=== PATIENT | female | born 1945 | race Caucasian/White ===

== ENCOUNTER → 2019-06-28 09:43 | Outpatient (CLI) | payer MEDICARE, SELFPAY ==
--- NOTE | ~2019-06-28 | MM_ITS ---
EXAMINATION: MM screening [facility] BI w alice HISTORY: Screening mammogram TECHNIQUE: Craniocaudal and mediolateral oblique 3-D tomosynthesis images were obtained and synthetic 2-D images were generated. CAD analysis was submitted and interpreted. COMPARISON: Comparison to multiple prior studies sequentially, with oldest reviewed study dated 01/2016. BREAST PARENCHYMAL COMPOSITION: There are scattered areas of fibroglandular density. FINDINGS: There is no evidence of suspicious mass, calcification, or architectural distortion to sugg est malignancy in either breast. There has been no suspicious interval change. IMPRESSION: 1. No mammographic evidence of malignancy. 2. Recommend routine screening mammography in one year. BI-RADS Category 1: Negative Reviewed, dictated and finalized at location A. MAINTENANCE WORKER
== END ==
PROVIDERS: Visit Provider Nurse Practitioner
DX: Z12.31 Encounter for screening mammogram for malignant neoplasm of breast (principal)
CPT/HCPCS: 77063; 77067

== ENCOUNTER 2020-07-07 10:46 | Outpatient (CLI) | payer MEDICARE, SELFPAY | END 2020-07-07 10:47 | disposition home or self-care (01) | LOC: ANHCOVIDVC 10:47 | PROVIDERS: PCP Internal Medicine | DX: Z23 Encounter for immunization (principal) | CPT/HCPCS: 0001A; 91300 ==

== ENCOUNTER 2020-07-28 10:46 | Outpatient (CLI) | payer MEDICARE, SELFPAY | END 2020-07-28 10:47 | disposition home or self-care (01) | LOC: ANHCOVIDVC 10:46 | PROVIDERS: PCP Internal Medicine | DX: Z23 Encounter for immunization (principal) | CPT/HCPCS: 0002A; 91300 ==

== ENCOUNTER → 2020-09-09 10:05 | Outpatient (CLI) | payer MEDICARE, SELFPAY ==
--- NOTE | ~2020-09-09 | MM_ITS ---
EXAMINATION: MM screening [facility] BI w alice HISTORY: Screening TECHNIQUE: Craniocaudal and mediolateral oblique 3-D tomosynthesis images were obtained and synthetic 2-D images were generated. CAD analysis was submitted and interpreted. COMPARISON: Comparison to multiple prior studies sequentially, with oldest reviewed study dated 01/2016. BREAST PARENCHYMAL COMPOSITION: There are scattered areas of fibroglandular density. FINDINGS: There is no evidence of suspicious mass, calcification, or architectural distortion to sugg est malignancy in either breast. There has been no suspicious interval change. IMPRESSION: 1. No mammographic evidence of malignancy. 2. Recommend routine screening mammography in one year. BI-RADS Category 1: Negative Reviewed, dictated and finalized at location A.
== END ==
PROVIDERS: PCP Internal Medicine; Visit Provider Clinical Nurse Specialist
DX: Z12.31 Encounter for screening mammogram for malignant neoplasm of breast (principal)
CPT/HCPCS: 77063; 77067

== ENCOUNTER → 2021-07-22 12:20 | Outpatient (CLI) | payer MEDICARE, SELFPAY ==
--- NOTE | ~2021-07-22 | DEXA_ITS ---
Bone Density Report Name: KYLAH GARCIA Age: 75 Sex: Female Ethnicity: White Date of : 1945 Indication: osteopenia; prior fracture;postmenopausal Referring Provider: Tisha Grey Study: Bone densitometry was performed. Exam Date: July 22, 2021 Accession number: [id number] Bone Density: Region BMD T-score Z-score Classification AP Spine (L1-L4) 0.815 -2.1 0.2 Osteopenia Femoral Neck (Left) 0.622 -2.0 0.0 Osteopenia Total Hip (Left) 0.714 -1.9 -0.2 Osteopenia Femoral Neck (Right) 0.583 -2.4 -0.4 Osteopenia Total Hip (Right) 0.705 -1.9 -0.2 Osteopenia Total Hip Mean 0.710 -1.9 -0.2 Osteopenia World Health Organization criteria for BMD impression classify patients as: Normal (T-score at or above -1.0), Osteopenia (T-score between -1.0 and -2.5), or Osteoporosis (T-score at or below -2.5). 10-year Fracture Risk(1): Major Osteoporotic Fracture 23% Hip Fracture 6.0% Reported Risk Factors: [place] (), Neck BMD=0.583, BMI=24.8, previous fracture (1) FRAX(R) Version 3.08. Fracture probability calculated for an untreated patient. Fracture probability may be lower if the patient has received treatment. Previous Exams: Region Exam Age BMD T-score BMD Change BMD Change Date g/cm2 vs Baseline vs Previous AP Spine(L1-L4) 07/22/2021 75 0.815 -2.1 0.049* 0.009 05/09/2019 73 0.807 -2.2 0.040* 0.008 04/19/2017 71 0.799 -2.3 0.032* -0.012 04/09/2015 69 0.811 -2.1 0.044* 0.019 08/16/2013 67 0.792 -2.3 0.025* -0.023* 05/20/2011 65 0.815 -2.1 0.049* 0.037* 04/07/2009 63 0.778 -2.4 0.011 0.011 03/15/2007 61 0.767 -2.5 Total Hip(Left) 07/22/2021 75 0.714 -1.9 -0.038* -0.028* 05/09/2019 73 0.741 -1.6 -0.010 -0.015 04/19/2017 71 0.756 -1.5 0.005 0.016 04/09/2015 69 0.741 -1.7 -0.011 -0.009 08/16/2013 67 0.749 -1.6 -0.002 0.020 05/20/2011 65 0.729 -1.7 -0.022 0.013 04/07/2009 63 0.716 -1.9 -0.035* -0.035* 03/15/2007 61 0.752 -1.6 Total Hip(Right) 07/22/2021 75 0.705 -1.9 -0.012 0.012 05/09/2019 73 0.693 -2.0 -0.025 -0.040* 04/19/2017 71 0.732 -1.7 0.015 0.014 04/09/2015 69 0.719 -1.8 0.001 -0.023 08/16/2013 67 0.742 -1.6 0.024 0.011 05/20/2011 65 0.731 -1.7 0.014 0.014
== END ==
PROVIDERS: PCP Internal Medicine; Visit Provider Nurse Practitioner
DX: Z78.0 Asymptomatic menopausal state (principal); M85.89 Other specified disorders of bone density and structure, multiple sites
CPT/HCPCS: 77080

== ENCOUNTER → 2021-09-13 10:53 | Outpatient (CLI) | payer MEDICARE, SELFPAY ==
--- NOTE | ~2021-09-13 | MM_ITS ---
EXAMINATION: MM screening [facility] BI w alice HISTORY: Screening TECHNIQUE: Craniocaudal and mediolateral oblique 3-D tomosynthesis images were obtained and synthetic 2-D images were generated. CAD analysis was submitted and interpreted. COMPARISON: Comparison to multiple prior studies sequentially, with oldest reviewed study dated 06/15/2015. BREAST PARENCHYMAL COMPOSITION: Breast composed of scattered areas of fibroglandular density FINDINGS: There is a focal asymmetry in the subareolar location of the left breast on MLO view, not v isualized on CC view. The right breast is stable without evidence for malignancy. IMPRESSION: 1. Focal left breast asymmetry on MLO view. 2. Additional mammographic views and possible breast ultrasound are recommended. BI-RADS Category 0: Incomplete: Needs additional imaging evaluation. Reviewed, dictated and finalized at location A. IMPRESSION: 1. Focal left breast asymmetry on MLO view. 2. Additional mammographic views and possible breast ultrasound are recommended . BI-RADS Category 0: Incomplete: Needs additional imaging evaluation.
== END ==
PROVIDERS: PCP Internal Medicine; Visit Provider Obstetrics & Gynecology
DX: Z12.31 Encounter for screening mammogram for malignant neoplasm of breast (principal)
CPT/HCPCS: 77063; 77067

== ENCOUNTER → 2021-09-22 08:46 | Outpatient (CLI) | payer MEDICARE, SELFPAY ==
--- NOTE | ~2021-09-22 | MM_ITS ---
EXAMINATION: MM diagnostic [facility] LT w alice HISTORY: Left breast asymmetry on screening mammogram TECHNIQUE: Additional 3-D tomosynthesis images of the left breast were performed and synthetic 2-D im ages were generated. CAD analysis was submitted and interpreted. COMPARISON: 09/13/2021, 09/09/2020, 06/28/2019, 06/25/2018 FINDINGS: There is a return to baseline fibroglandular appearance with spot compression of the left b reast in the area questioned on screening mammogram. IMPRESSION: 1. No mammographic evidence of malignancy. 2. Recommend routine screening mammography in one year. BI-RADS Category 1: Negative Reviewed, dictated and finalized at location A.
== END ==
PROVIDERS: PCP Internal Medicine; Visit Provider Obstetrics & Gynecology
DX: R92.8 Other abnormal and inconclusive findings on diagnostic imaging of breast (principal)
CPT/HCPCS: 77061; 77065; G0279

== ENCOUNTER 2022-02-20 07:55 | Outpatient (CLI) | payer MEDICARE, SELFPAY ==
[2022-02-20 19:49] LABS: Basophils Percent Auto 0.7 % (0.2-1.2); Eosinophils Absolute Auto 0.2 K/mm3 (0-0.3); Hematocrit 42.5 % (37.0-47.0); Hemoglobin 13.8 g/dL (12.0-15.0); Lymphocytes Absolute Auto 1.76 K/mm3 (0.9-3.2); Lymphocytes Percent Auto 29.6 % (18.3-44.2); Mean Corpuscular HGB Conc 32.5 g/dl (32-36); Mean Corpuscular Hemoglobin 30.5 pg (26-34); Monocytes Absolute Auto 0.9 K/mm3 (0.1-0.6); Monocytes Percent Auto 14.3 % (2.6-8.5); Neutrophils Absolute Auto 3.1 K/mm3 (1.3-6.7); Neutrophils Percent Auto 52.4 % (45.5-73.1); Platelet Count Result 241 k/mm3 (150-375); Red Blood Count 4.52 M/mm3 (4.2-5.4); Red Cell Distribution Width 12.6 % (11.5-14.5); White Blood Count 5.9 K/mm3 (4.5-10.0)
[2022-02-20 20:07] LABS: Alanine Aminotransferase 19 U/L (6-35); Albumin Level 4.1 g/dL (3.5-5.1); Alkaline Phosphatase 87 U/L (38-126); Anion Gap 10 mmol/L (8-16); Aspartate Amino Transferase 26 U/L (14-36); Bilirubin,Total 0.5 mg/dL (0.2-1.3); Blood Urea Nitrogen 16 mg/dL (7-17); Calcium 8.7 mg/dL (8.4-10.2); Carbon Dioxide 29 mmol/L (22-30); Chloride 101 mmol/L (98-107); Cholesterol 178 mg/dL (0-200); Estimated Glomerular Filt Rate > 60; Glucose 87 mg/dL (65-110); HDL Direct 56 mg/dL; Potassium 3.7 mmol/L (3.4-5.0); Sodium 140 mmol/L (137-145); Triglycerides 120 mg/dL (<150)
[2022-02-20 20:18] LABS: LDL Cholesterol Direct 77 mg/dL
[2022-02-20 20:44] LABS: Vitamin D 25 Hydroxy 45.2 ng/mL
== END 2022-02-20 07:56 | disposition home or self-care (01) ==
LOC: ANHGOSHLAB 07:57
PROVIDERS: PCP Internal Medicine; Visit Provider Nurse Practitioner
DX: E55.9 Vitamin D deficiency, unspecified (principal); Z13.29 Encounter for screening for other suspected endocrine disorder; E78.5 Hyperlipidemia, unspecified; E03.9 Hypothyroidism, unspecified
CPT/HCPCS: 36415; 80053; 80061; 82306; 84443; 85025

== ENCOUNTER → 2022-09-14 10:20 | Outpatient (CLI) | payer MEDICARE, SELFPAY ==
--- NOTE | ~2022-09-14 | MM_ITS ---
EXAMINATION: MM screening [facility] BI w alice HISTORY: Screening mammogram TECHNIQUE: Craniocaudal and mediolateral oblique 3-D tomosynthesis images were obtained and synthetic 2-D images were generated. CAD analysis was submitted and interpreted. COMPARISON: 09/22/2021, 09/13/2021, 09/09/2020, 06/28/2019 BREAST PARENCHYMAL COMPOSITION: There are scattered areas of fibroglandular density. FINDINGS: No suspicious mass, calcification, or architectural distortion are identified in either miracle ast to suggest malignancy. There has been no suspicious interval change. IMPRESSION: 1. No mammographic evidence of malignancy. 2. Recommend routine screening mammography in one year. BI-RADS Category 1: Negative Reviewed, dictated and finalized at location A.
--- NOTE | ~2022-09-14 | DEXA_ITS ---
Bone Density Report Name: KYLAH GRACIA Age: 76 Sex: Female Ethnicity: White Date of : 1945 Indication: osteopenia; monitoring treatment; prior fracture; postmenopausal Referring Provider: Tisha Grey Study: Bone densitometry was performed. Exam Date: September 14, 2022 Accession number: [id number] Bone Density: Region BMD T-score Z-score Classification AP Spine (L1-L4) 0.848 -1.8 0.6 Osteopenia Femoral Neck (Left) 0.633 -1.9 0.1 Osteopenia Total Hip (Left) 0.724 -1.8 0.0 Osteopenia Femoral Neck (Right) 0.601 -2.2 -0.2 Osteopenia Total Hip (Right) 0.708 -1.9 -0.2 Osteopenia Total Hip Mean 0.716 -1.9 -0.1 Osteopenia World Health Organization criteria for BMD impression classify patients as: Normal (T-score at or above -1.0), Osteopenia (T-score between -1.0 and -2.5), or Osteoporosis (T-score at or below -2.5). 10-year Fracture Risk: FRAX not reported because: Treated for osteoporosis Previous Exams: Region Exam Age BMD T-score BMD Change BMD Change Date g/cm2 vs Baseline vs Previous AP Spine(L1-L4) 09/14/2022 76 0.848 -1.8 0.081* 0.033* 07/22/2021 75 0.815 -2.1 0.049* 0.009 05/09/2019 73 0.807 -2.2 0.040* 0.008 04/19/2017 71 0.799 -2.3 0.032* -0.012 04/09/2015 69 0.811 -2.1 0.044* 0.019 08/16/2013 67 0.792 -2.3 0.025* -0.023* 05/20/2011 65 0.815 -2.1 0.049* 0.037* 04/07/2009 63 0.778 -2.4 0.011 0.011 03/15/2007 61 0.767 -2.5 Total Hip(Left) 09/14/2022 76 0.724 -1.8 -0.027 0.011 07/22/2021 75 0.714 -1.9 -0.038* -0.028* 05/09/2019 73 0.741 -1.6 -0.010 -0.015 04/19/2017 71 0.756 -1.5 0.005 0.016 04/09/2015 69 0.741 -1.7 -0.011 -0.009 08/16/2013 67 0.749 -1.6 -0.002 0.020 05/20/2011 65 0.729 -1.7 -0.022 0.013 04/07/2009 63 0.716 -1.9 -0.035* -0.035* 03/15/2007 61 0.752 -1.6 Total Hip(Right) 09/14/2022 76 0.708 -1.9 -0.009 0.003 07/22/2021 75 0.705 -1.9 -0.012 0.012 05/09/2019 73 0.693 -2.0 -0.025 -0.040* 04/19/2017 71 0.732 -1.7 0.015 0.014 04/09/2015 69 0.719 -1.8 0.001 -0.023 08/16/2013 67 0.742 -1.6 0.024 0.011 05/20/2011 65 0.731 -1.7 0.014 0.014 04/07/2009 63 0.716 -1.8 -0.001 -0.001
== END ==
PROVIDERS: PCP Nurse Practitioner; Visit Provider Nurse Practitioner
DX: Z12.31 Encounter for screening mammogram for malignant neoplasm of breast (principal); M85.9 Disorder of bone density and structure, unspecified; Z78.0 Asymptomatic menopausal state
CPT/HCPCS: 77063; 77067; 77080

== ENCOUNTER 2023-02-21 08:17 | Outpatient (CLI) | payer MEDICARE, SELFPAY ==
[2023-02-21 18:53] LABS: Basophils Percent Auto 0.5 % (0.2-1.2); Eosinophils Absolute Auto 0.1 K/mm3 (0-0.3); Eosinophils Percent Auto 1.5 % (0-4.4); Hematocrit 45.7 % (37.0-47.0); Hemoglobin 14.3 g/dL (12.0-15.0); Immature Granulocyte Absolute 0.01 K/mm3 (0.00-0.031); Immature Granulocyte Percent A 0.2 % (0-0.5); Lymphocytes Absolute Auto 1.75 K/mm3 (0.9-3.2); Mean Corpuscular HGB Conc 31.3 g/dl (32-36); Mean Corpuscular Hemoglobin 30.6 pg (26-34); Mean Corpuscular Volume 97.6 fl (80-100); Mean Platelet Volume 11.6 fl (7.4-10.4); Monocytes Absolute Auto 0.7 K/mm3 (0.1-0.6); Monocytes Percent Auto 11.6 % (2.6-8.5); Neutrophils Absolute Auto 3.5 K/mm3 (1.3-6.7); Neutrophils Percent Auto 57.2 % (45.5-73.1); Platelet Count Result 238 k/mm3 (150-375); Red Blood Count 4.68 M/mm3 (4.2-5.4)
[2023-02-21 19:21] LABS: Vitamin D 25 Hydroxy 43.9 ng/mL
[2023-02-21 19:52] LABS: Alanine Aminotransferase 18 U/L (6-35); Albumin Level 4.2 g/dL (3.5-5.1); Alkaline Phosphatase 75 U/L (38-126); Anion Gap 2 mmol/L (8-16); Aspartate Amino Transferase 27 U/L (14-36); Bilirubin,Total 0.6 mg/dL (0.2-1.3); Blood Urea Nitrogen 17 mg/dL (7-17); Calcium 8.8 mg/dL (8.4-10.2); Carbon Dioxide 33 mmol/L (22-30); Chloride 104 mmol/L (98-107); Cholesterol 200 mg/dL (0-200); Estimated Glomerular Filt Rate > 60; Glucose 80 mg/dL (65-110); HDL Direct 67 mg/dL; Potassium 4.2 mmol/L (3.4-5.0); Sodium 139 mmol/L (137-145); Triglycerides 122 mg/dL (<150)
[2023-02-21 20:02] LABS: LDL Cholesterol Direct 84 mg/dL
== END 2023-02-21 08:18 | disposition home or self-care (01) ==
PROVIDERS: PCP Nurse Practitioner; Visit Provider Nurse Practitioner
DX: E78.5 Hyperlipidemia, unspecified (principal); E55.9 Vitamin D deficiency, unspecified; Z13.29 Encounter for screening for other suspected endocrine disorder
CPT/HCPCS: 36415; 80053; 80061; 82306; 85025

== ENCOUNTER 2023-07-11 15:33 | Outpatient (CLI) | payer MEDICARE, SELFPAY ==
[2023-07-11 16:26] LABS: Alanine Aminotransferase 18 U/L (6-35); Aspartate Amino Transferase 43 U/L (14-36)
== END 2023-07-11 15:34 | disposition home or self-care (01) ==
LOC: ANHLAB 15:35
PROVIDERS: PCP Nurse Practitioner; Visit Provider Podiatrist Foot & Ankle Surgery
DX: B35.1 Tinea unguium (principal)
CPT/HCPCS: 36415; 84450; 84460

== ENCOUNTER 2023-09-10 13:25 | Emergency (ER) | payer MEDICARE, SELFPAY ==
--- NOTE | ~2023-09-10 | XR_ITS ---
AP and lateral views of the right hip Clinical history: Pain Findings: No acute fracture or dislocation is seen. Osseous alignment is anatomic. Right hip joint sp teresa is preserved. Soft tissues are unremarkable. Impression: No significant abnormality is seen. Reviewed, dictated and finalized at location . Impression: No significant abnormality is seen.
--- NOTE | ~2023-09-10 | XR_ITS ---
Right Shoulder Technique: AP and scapular Y views were obtained. Clinical History: Pain Findings: No fracture or dislocation is seen. Osseous alignment is anatomic. The glenohumeral and acr omioclavicular joint spaces are preserved. Soft tissues are unremarkable. Impression: Unremarkable right shoulder radiographs. Reviewed, dictated and finalized at [facility]. Impression: Unremarkable right shoulder radiographs.
--- NOTE | 2023-09-10 13:27 | ED.GENADULT ---
HPI - General Adult General Chief complaint: Fall Stated complaint: Right Shoulder/Hip Pain Time Seen by Provider: 09/10/23 13:34 Source: patient, RN notes reviewed and old records reviewed Mode of arrival: ambulatory Limitations: no limitations History of Present Illness HPI narrative: 77-year-old female presents to the [facility] with right shoulder and right hip pain. Patient states 2 days ago on Sunday she tripped and fell on her right side. No treatment prior to arrival Has full range of motion of the shoulder. Walks with a normal gait. Related Data Home Medications Medication Instructions Recorded Confirmed cholecalciferol (vitamin D3) 50 50 mcg PO DAILY 02/26/20 09/10/23 mcg (2,000 unit) capsule vit C 250 mg-vit E 90 mg-zinc 40 2 tablet PO DAILY 03/01/22 09/10/23 mg-copper 1 [id number] capsule (PreserVision AREDS-2) terbinafine HCl 250 mg tablet 250 mg PO DAILY 07/20/23 09/10/23 Allergies Allergy/AdvReac Type Severity Reaction Status Date / Time doxycycline Allergy Unknown Hives Verified 07/20/23 09:59 Review of Systems Review of Systems: All systems reviewed & are unremarkable except as noted in HPI and below Constitutional: Constitutional: Reports no additional constitutional complaints Eyes: Eyes: Reports no additional eye complaints ENT: Reports system reviewed and no additional complaints, except as documented Cardiovascular: Cardiovascular: Reports no additional cardiovascular complaints, Denies chest pain and Denies dyspnea Respiratory: Respiratory: Reports no additional respiratory complaints, Denies chest congestion, Denies cough and Denies dyspnea Gastrointestinal: Gastrointestinal: Reports no additional gastrointestinal complaints, Denies abdominal pain, Denies nausea and Denies vomiting Musculoskeletal: Musculoskeletal: Reports as per HPI and Reports arthralgias (Generalized right shoulder, generalized right hip) Integumentary/Breasts: Skin/Breast: Reports system reviewed and no additional complaints, except as docu Neurologic: Reports system reviewed and no additional complaints, except as documented Psychiatric: Psychiatric: Reports no additional psychiatric complaints Allergic/Immunologic: Allergic/Immunologic: Reports no additional allergic/immunologic complaints [facility] Past Medical History Medical History Abnormality of left breast on screening mammogram Encounter for Papanicolaou smear for cervical cancer screening History of fracture History of macular degeneration Hypercalcemia Hyperlipidemia Hypothyroidism Measles Mumps Osteopenia Rosacea Screening mammogram, encounter for Vitamin D deficiency Surgical History Surgical History History of appendectomy 01/02/04 History of breast biopsy 01/05/02 cancer--no treatment needed History of tubal ligation Hx of cholecystectomy 1983 Family History Family History Father Family history of coronary artery disease COPD (chronic obstructive pulmonary disease) Mother Cerebral hemorrhage Family history of osteoporosis Cerebrovascular accident Sibling Family history of osteoporosis sister brother Social History Social History Social History: Caffeine-none Smoking status: Never smoker Second hand tobacco smoke exposure: Yes Smoking end date: 05/07/92 Alcohol intake: never Alcohol use details: rarely 1-2 a year Substance use: never Substance use type: does not use Do You Feel Safe in your Home?: Yes Lack of Transportation: No Lack of Food: Never True Current Housing: I Have Housing Concerned About Future Housing: No Difficulty Paying Gas/Electric Bills: No Difficulty Paying for Meds: No Currently Unemployed: No Education: High School Diploma
[2023-09-10 13:34] VITALS: BP 144/66; PULSE 71; RESP 16; TEMP 36.4; O2SAT 100
== END 2023-09-10 14:16 | disposition home or self-care (01) ==
PROVIDERS: Emergency Provider Nurse Practitioner; PCP Nurse Practitioner
DX: M25.551 Pain in right hip (principal); M25.511 Pain in right shoulder; W19.XXXA Unspecified fall, initial encounter; E78.5 Hyperlipidemia, unspecified; E03.9 Hypothyroidism, unspecified; E55.9 Vitamin D deficiency, unspecified
CPT/HCPCS: 73030; 73502; 99214; G0463

== ENCOUNTER 2023-10-10 14:13 | Outpatient (CLI) | payer MEDICARE, SELFPAY ==
[2023-10-10 15:28] LABS: Alanine Aminotransferase 19 U/L (6-35); Aspartate Amino Transferase 34 U/L (14-36)
== END 2023-10-10 14:14 | disposition home or self-care (01) ==
LOC: ANHLAB 14:14
PROVIDERS: PCP Nurse Practitioner; Visit Provider Nurse Practitioner
DX: B35.1 Tinea unguium (principal)
CPT/HCPCS: 36415; 84450; 84460

== ENCOUNTER 2023-10-23 13:31 | Outpatient (CLI) | payer MEDICARE, SELFPAY ==
--- NOTE | ~2023-10-23 | MM_ITS ---
EXAMINATION: MM screening [facility] BI w alice HISTORY: Screening TECHNIQUE: Craniocaudal and mediolateral oblique 3-D tomosynthesis images were obtained and synthetic 2-D images were generated. CAD analysis was submitted and interpreted. COMPARISON: Comparison to multiple prior studies sequentially, with oldest reviewed study dated 06/25. BREAST PARENCHYMAL COMPOSITION: Not dense: There are scattered areas of fibroglandular density. FINDINGS: There is no evidence of suspicious mass, calcification, or architectural distortion to sugg est malignancy in either breast. There has been no suspicious interval change. IMPRESSION: 1. No mammographic evidence of malignancy. 2. Recommend routine screening mammography in one year. BI-RADS Category 1: Negative Reviewed, dictated and finalized at location B.
== END 2023-10-23 13:32 ==
LOC: MICIMG 13:31
PROVIDERS: PCP Nurse Practitioner; Visit Provider Obstetrics & Gynecology
DX: Z12.31 Encounter for screening mammogram for malignant neoplasm of breast (principal)
CPT/HCPCS: 77063; 77067

== ENCOUNTER 2023-11-13 14:00 | Outpatient (RCR) | payer MEDICARE, SELFPAY ==
[2023-10-12 11:20] VITALS: BP_SYST 140
--- NOTE | 2023-10-12 12:20 | OPREHPOC ---
Outpatient Therapy Plan of Care This is a Multidisciplinary Plan of Care that may contain components documented by all disciplines (PT, OT, and ST.) PT Problem 1 PT Problem #1 Knowledge Deficit PT Goal 1 Goal [place] with HEP Target Visit 4 PT Problem 2 PT Problem #2 Impaired Range of Motion PT Goal 1 Goal Demonstrate 165 degrees of shoulder flexion ROM for improved functional reach Target Visit 8 PT Problem 3 PT Problem #3 Impaired Strength PT Goal 1 Goal Improve R shoulder external rotation strength to 4 +/5 to improve shoulder stability Target Visit 8 PT Goal 2 Goal Improve R shoulder flexion to 4+/5 to improve lifting ability for ADL performance Target Visit 8 PT Goal 1 Goal Demonstrate ability to perform 5# lift overhead pain free for reaching to cabinet ability Target Visit 8
--- NOTE | 2023-10-12 12:21 | PTOPEVAL1 ---
Assessment and note entered by Tulio Giang, PT Evaluation Information Assessment Status Evaluation Diagnosis Complete tear of right rotator cuff, Right shoulder pain Onset 09/08/23 Subjective Information Reports that she tripped an fell in early September of this year. Prior to that she would only have cramping and soreness in shoulder. She feels she is a bit weaker and unsure how much damage came from the fall. She gets some pain with pressure on the shoulder. Denies radicular issues. Reported Pain Level Pain Score 0: Self Report Assessment PT Clinical Summary Patient presents with weakness in upper rotator cuff group. Minor difference between active and passive shoulder motion at this time. Patient appears to be on the healing end of injury. Implemented isometric stretching and active assisted motion with no increased pain. Will continue with postural strengthening and resistance strengthening moving forward to maximize function. Plan of Care Interventions Electrical Stimulation,Hot Pack/Cold Pack,Manual Therapy,Neuro Re-education,Therapeutic Activities, Therapeutic Exercise PT Services Indicated Yes Treatment Frequency and 2x/week for 8 visits Duration These treatments will address the objective and functional deficits as defined above. The patient will be advanced safely and appropriately in order for the patient to progress towards his/her prior level of function. Additional exercises will be introduced and as well as a comprehensive home exercise program upon discharge, if needed, ?to ensure carryover of functional gains achieved in the clinic. This treatment plan has been reviewed and agreement upon by the patient.
--- NOTE | 2023-11-13 14:46 | PTOPDC ---
Assessment and note entered by Tulio Giang, PT Evaluation Information Assessment Status Discharge Diagnosis Complete tear of right rotator cuff, Right shoulder pain Onset 09/08/23 Subjective Information Reports that she is still having some pain with reaching behind her back and dressing in her jacket. Feels she is better overall. Feels she is sleeping well but continues to have some difficulty with pressure on her shoulder She has had off and on popping of the joint which occasionally hurts. She has been a little more achy this week but is unsure if se has done anything to prompt this. She is happy with where she is in therapy at this point and is requesting discharge to [facility]. Pain is isolated to a single motion. Reported Pain Level Pain Score 0: Self Report Assessment PT Clinical Summary Patient Has made excellent progress at this point with therapy resulting in improved shoulder active motion and improved capsular strength. At this time she is only functionally limited in donning a jacket motion combination of abduction and external rotation. No pain with all other activity . She is compliant with [facility] and plans to continue at home post discharge. I informed her that I would be available should she have any concerns moving forward. Plan of Care PT Services Indicated D/C to [facility]
== END 2023-11-13 14:58 | disposition home or self-care (01) ==
LOC: ANHGOSHPT 14:00
PROVIDERS: PCP Nurse Practitioner; Visit Provider Orthopaedic Surgery
DX: M75.121 Complete rotator cuff tear or rupture of right shoulder, not specified as traumatic (principal)
CPT/HCPCS: 97110; 97112; 97140; 97161; 97530

== ENCOUNTER 2024-01-01 08:14 | Emergency (ER) | payer MEDICARE, SELFPAY ==
--- NOTE | ~2024-01-01 | XR_ITS ---
EXAMINATION: XR hand LT min 3V DATE: 01/01/2024 08:38 INDICATION: Pain and bruising at the left third-fifth metacarpals. TECHNIQUE: Posteroanterior, oblique and lateral views of the left hand were obtained. COMPARISON: None. FINDINGS: Diffuse osteopenia. Subtle linear lucency extending across the waist of the scaphoid consistent with nondisplaced fracture. No other fractures identified. Alignment remains essentially. Polyarticular os teoarthritis, moderate severity triscaphe and first carpometacarpal joint. Mild to moderate osteoarth ritis of the joints and mild osteoarthritis at the wrist, midcarpal and at the metacarpophalangeal nancy ints. Likely degenerative subarticular cystlike changes with dense chronic markings at the bases mult iple phalanges. Soft tissue swelling of the carpus. IMPRESSION: 1. Likely nondisplaced fracture at the scaphoid waist. Correlate for point tenderness at the radial a spect of the carpus. 2. 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 Reviewed, dictated and finalized at location A. IMPRESSION: 1. Likely nondisplaced fracture at the scaphoid waist. Correlate for point tend erness at the radial aspect of the carpus. 2. 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
[2024-01-01 08:28] VITALS: BP 139/72; PULSE 85; RESP 16; TEMP 36.5; O2SAT 98
--- NOTE | 2024-01-01 08:32 | ED.GENADULT ---
HPI - General Adult General Chief complaint: Extremity Injury, Upper Stated complaint: Injured Left Hand Time Seen by Provider: 01/01/24 08:43 Source: patient, RN notes reviewed and old records reviewed Mode of arrival: ambulatory Limitations: no limitations History of Present Illness HPI narrative: 78-year-old [facility] complaint of left hand pain status post fall yesterday. Patient states that neighbor's dog ran over to Greet her yesterday and was running around her and in between her legs, causing her to fall toward her left side. Patient reports falling onto left outstretched arm. Patient states that she did not have any pain or swelling until overnight while sleeping. Patient reports that upon awakening this morning she ecchymosis to the dorsal and palmar hand and mild swelling. Patient denies numbness, tingling, prior injury, decreased ROM of all digits. Related Data Home Medications Medication Instructions Recorded Confirmed cholecalciferol (vitamin D3) 50 50 mcg PO DAILY 02/26/20 01/01/24 mcg (2,000 unit) capsule vit C 250 mg-vit E 90 mg-zinc 40 2 tablet PO DAILY 03/01/22 01/01/24 mg-copper 1 [id number] capsule (PreserVision AREDS-2) terbinafine HCl 250 mg tablet 250 mg PO DAILY 07/20/23 01/01/24 metronidazole 0.75 % lotion 1 applic topical DIRECTED 01/01/24 01/01/24 Allergies Allergy/AdvReac Type Severity Reaction Status Date / Time doxycycline Allergy Unknown Hives Verified 11/16/23 07:54 Review of Systems Review of Systems: All systems reviewed & are unremarkable except as noted in HPI and below Constitutional: Constitutional: Reports no additional constitutional complaints Eyes: Eyes: Reports no additional eye complaints ENT: Reports system reviewed and no additional complaints, except as documented Cardiovascular: Cardiovascular: Reports no additional cardiovascular complaints, Denies chest pain and Denies dyspnea Respiratory: Respiratory: Reports no additional respiratory complaints, Denies cough and Denies dyspnea Musculoskeletal: Musculoskeletal: Reports as per HPI, Reports arthralgias, Reports joint swelling, Reports limited range of motion, Denies numbness and Denies tingling Neurologic: Reports system reviewed and no additional complaints, except as documented Psychiatric: Psychiatric: Reports no additional psychiatric complaints PMFSH Past Medical History Medical History Abnormality of left breast on screening mammogram Encounter for Papanicolaou smear for cervical cancer screening History of fracture History of macular degeneration Hypercalcemia Hyperlipidemia Hypothyroidism Measles Mumps Osteopenia Rosacea Screening mammogram, encounter for Vitamin D deficiency Surgical History Surgical History History of appendectomy 01/02/04 History of breast biopsy 01/05/02 cancer--no treatment needed History of knee surgery left History of tubal ligation Hx of cholecystectomy 1983 Family History Family History Father Family history of coronary artery disease COPD (chronic obstructive pulmonary disease) Mother Cerebral hemorrhage Family history of osteoporosis Cerebrovascular accident Sibling Family history of osteoporosis sister brother Polio Social History Social History Social History: Caffeine-none Smoking status: Former smoker Second hand tobacco smoke exposure: Yes Smoking end date: 05/07/92 Alcohol intake: current Alcohol use details: rarely 1-2 a year Substance use: never Substance use type: does not use Do You Feel Safe in your Home?: Yes Lack of Transportation: No Lack of Food: Never True Current Housing: I Have Housing Concern
== END 2024-01-01 09:30 | disposition home or self-care (01) ==
PROVIDERS: Emergency Provider Nurse Practitioner Family; PCP Nurse Practitioner
DX: S62.002A Unspecified fracture of navicular [scaphoid] bone of left wrist, initial encounter for closed fracture (principal); W01.0XXA Fall on same level from slipping, tripping and stumbling without subsequent striking against object, initial encounter; Z87.891 Personal history of nicotine dependence; E78.5 Hyperlipidemia, unspecified; E03.9 Hypothyroidism, unspecified; M85.80 Other specified disorders of bone density and structure, unspecified site; E55.9 Vitamin D deficiency, unspecified; H35.30 Unspecified macular degeneration
CPT/HCPCS: 29125; 73130; 99214; A4565; G0463

== ENCOUNTER 2024-01-14 10:14 | Outpatient (CLI) | payer MEDICARE, SELFPAY ==
--- NOTE | ~2024-01-14 | XR_ITS ---
XR wrist LT min 3V Ordering provider: Chadwick Lira MD History: . HX left scaphoid fx . Comparison: January 01, 2024 FINDINGS: BONES: Fracture is seen in the body of the scaphoid bone. JOINT SPACES: Well maintained. SOFT TISSUES: Normal. IMPRESSION: Fracture of the scaphoid unchanged from previous examination. Reviewed, dictated and finalized at location A.
== END 2024-01-14 10:15 | disposition home or self-care (01) ==
LOC: ANHIMG 10:22
PROVIDERS: PCP Nurse Practitioner; Visit Provider Plastic Surgery
DX: S62.002A Unspecified fracture of navicular [scaphoid] bone of left wrist, initial encounter for closed fracture (principal); X58.XXXA Exposure to other specified factors, initial encounter
CPT/HCPCS: 73110

== ENCOUNTER 2024-01-16 10:21 | Outpatient (CLI) | payer MEDICARE, SELFPAY ==
[2024-01-16 11:23] LABS: Alanine Aminotransferase 18 U/L (6-35); Aspartate Amino Transferase 40 U/L (14-36)
== END 2024-01-16 10:22 | disposition home or self-care (01) ==
PROVIDERS: PCP Nurse Practitioner; Visit Provider Podiatrist Foot & Ankle Surgery
DX: B35.1 Tinea unguium (principal)
CPT/HCPCS: 36415; 84450; 84460

== ENCOUNTER 2024-01-29 10:23 | Outpatient (CLI) | payer MEDICARE, SELFPAY ==
--- NOTE | ~2024-01-29 | XR_ITS ---
XR wrist LT min 3V Ordering provider: Chadwick Lira MD History: . HX FRACTURE X 4 WEEKS AGO, F/U . Comparison: January 14, 2024 FINDINGS: BONES: Healing fracture in the scaphoid bone. JOINT SPACES: Well maintained. SOFT TISSUES: Normal. IMPRESSION: Healing fracture in the scaphoid bone. Reviewed, dictated and finalized at location A.
== END 2024-01-29 10:24 | disposition home or self-care (01) ==
PROVIDERS: PCP Nurse Practitioner; Visit Provider Plastic Surgery
DX: S62.002D Unspecified fracture of navicular [scaphoid] bone of left wrist, subsequent encounter for fracture with routine healing (principal); X58.XXXD Exposure to other specified factors, subsequent encounter
CPT/HCPCS: 73110

== ENCOUNTER 2024-02-18 08:09 | Outpatient (CLI) | payer MEDICARE, SELFPAY ==
--- NOTE | ~2024-02-18 | XR_ITS ---
XR hand LT min 3V Ordering provider: Chadwick Lira MD History: . S62.002A - Unspecified fracture of navicular [scaphoid] b... . Comparison: 01/29/2024 FINDINGS: BONES: Healing fracture is seen in the scaphoid bone. Irregularity also seen in the pisiform bone. Fo llow-up advised. JOINT SPACES: Narrowing of the proximal and distal interphalangeal joints. SOFT TISSUES: Unremarkable. IMPRESSION: Healing fracture in the scaphoid bone. Irregularity in the pisiform bone which may indicate healing f racture. Reviewed, dictated and finalized at location A. IMPRESSION: Healing fracture in the scaphoid bone. Irregularity in the pisiform bone which may indicate healing fracture.
== END 2024-02-18 08:10 | disposition home or self-care (01) ==
LOC: ANHIMG 08:12
PROVIDERS: PCP Nurse Practitioner; Visit Provider Plastic Surgery
DX: S62.002D Unspecified fracture of navicular [scaphoid] bone of left wrist, subsequent encounter for fracture with routine healing (principal); X58.XXXD Exposure to other specified factors, subsequent encounter
CPT/HCPCS: 73130

== ENCOUNTER 2024-02-26 08:07 | Outpatient (CLI) | payer MEDICARE, SELFPAY ==
[2024-02-26 13:17] LABS: Alanine Aminotransferase 16 U/L (6-35); Albumin Level 4.2 g/dL (3.5-5.1); Alkaline Phosphatase 88 U/L (38-126); Anion Gap 5 mmol/L (4-12); Aspartate Amino Transferase 40 U/L (14-36); Bilirubin,Total 0.8 mg/dL (0.2-1.3); Blood Urea Nitrogen 17 mg/dL (7-17); Calcium 9.1 mg/dL (8.4-10.2); Carbon Dioxide 33 mmol/L (22-30); Chloride 101 mmol/L (98-107); Cholesterol 198 mg/dL (0-200); Estimated Glomerular Filt Rate > 60; Glucose 85 mg/dL (65-110); HDL Direct 82 mg/dL; Potassium 4.5 mmol/L (3.4-5.0); Sodium 139 mmol/L (137-145); Triglycerides 120 mg/dL (<150)
[2024-02-26 13:28] LABS: LDL Cholesterol Direct 64 mg/dL
[2024-02-26 13:29] LABS: Basophils Percent Auto 0.7 % (0.2-1.2); Eosinophils Absolute Auto 0.2 K/mm3 (0-0.3); Eosinophils Percent Auto 2.7 % (0-4.4); Hematocrit 42.1 % (37.0-47.0); Hemoglobin 13.2 g/dL (12.0-15.0); Immature Granulocyte Absolute 0.01 K/mm3 (0.00-0.031); Immature Granulocyte Percent A 0.2 % (0-0.5); Lymphocytes Absolute Auto 1.51 K/mm3 (0.9-3.2); Lymphocytes Percent Auto 25.5 % (18.3-44.2); Mean Corpuscular HGB Conc 31.4 g/dl (32-36); Mean Corpuscular Hemoglobin 30.4 pg (26-34); Mean Platelet Volume 11.3 fl (7.4-10.4); Monocytes Absolute Auto 0.8 K/mm3 (0.1-0.6); Monocytes Percent Auto 13.5 % (2.6-8.5); Neutrophils Absolute Auto 3.4 K/mm3 (1.3-6.7); Neutrophils Percent Auto 57.4 % (45.5-73.1); Platelet Count Result 244 k/mm3 (150-375); Red Blood Count 4.34 M/mm3 (4.2-5.4); Red Cell Distribution Width 13.3 % (11.5-14.5); White Blood Count 5.9 K/mm3 (4.5-10.0)
[2024-02-26 14:56] LABS: Vitamin D 25 Hydroxy 31.8 ng/mL
== END 2024-02-26 08:08 | disposition home or self-care (01) ==
PROVIDERS: PCP Nurse Practitioner; Visit Provider Nurse Practitioner
DX: E78.5 Hyperlipidemia, unspecified (principal); E55.9 Vitamin D deficiency, unspecified; E03.9 Hypothyroidism, unspecified; Z13.29 Encounter for screening for other suspected endocrine disorder
CPT/HCPCS: 36415; 80053; 80061; 82306; 84443; 85025

== ENCOUNTER 2024-04-16 12:46 | Outpatient (CLI) | payer MEDICARE, SELFPAY ==
--- NOTE | ~2024-04-16 | MR_ITS ---
MRI of the right shoulder Technique: Axial proton-density fat-sat images, coronal proton density fat-sat and T2 fat-sat images, and sagittal T1-weighted and T2 fat-sat images were acquired. Clinical History: Pain Findings: There is minimal degenerative change at the AC joint. Tiny subacromial spur probably presen t. Coracoclavicular, coracoacromial, and coracohumeral ligaments are intact. There is probable 12 x 9 mm full-thickness tear at the anterior, distal supraspinatus tendon insertio n. There is background mild to moderate supraspinatus and infraspinatus tendinosis. No partial or ful l-thickness tear of the infraspinatus tendon. Subscapularis tendon is intact with mild tendinosis. In terarterial biceps tendon not seen, probably completely ruptured and retracted into the upper arm bey ond the ykjqy-ul-isat. There is superior labral tear. Inferior glenohumeral ligament is intact. There is small glenohumeral joint effusion. There is promin ent fluid distention with septation involving the subcoracoid bursa, compatible with bursitis. There is minimal fluid in the subacromial/subdeltoid bursa. There is minimal degenerative change of the gle nohumeral joint. No muscle atrophy or edema. Impression: 12 x 9 mm full-thickness tear at the anterior, distal supraspinatus tendon insertion. Complete rupture of the proximal long head biceps tendon, which is retracted off the axllr-qh-crph in to the upper arm. Prominent subcoracoid bursitis. Superior labral tear. Reviewed, dictated and finalized at [facility]. H MOLDER Impression: 12 x 9 mm full-thickness tear at the anterior, distal supraspinatus tendon inse rtion. Complete rupture of the proximal long head biceps tendon, which is retracted of f the afqtm-xa-vorz into the upper arm. Prominent subcoracoid bursitis. Superior labral tear.
== END 2024-04-16 12:47 | disposition home or self-care (01) ==
LOC: MICIMG 12:47
PROVIDERS: PCP Orthopaedic Surgery; Visit Provider Orthopaedic Surgery
DX: S46.811A Strain of other muscles, fascia and tendons at shoulder and upper arm level, right arm, initial encounter (principal); S46.111A Strain of muscle, fascia and tendon of long head of biceps, right arm, initial encounter; S43.491A Other sprain of right shoulder joint, initial encounter; X58.XXXA Exposure to other specified factors, initial encounter; M75.51 Bursitis of right shoulder
CPT/HCPCS: 73221

== ENCOUNTER 2024-06-18 08:15 | Emergency (ER) | payer MEDICARE, SELFPAY ==
--- NOTE | 2024-06-18 08:35 | ED.URI ---
HPI - URI/Sore Throat General Chief Complaint: Upper Respiratory Infection Stated Complaint: Flu Symptoms Time Seen by Provider: 06/18/24 08:35 Source: patient and RN notes reviewed Mode of arrival: ambulatory Limitations: no limitations History of Present Illness HPI Narrative: 78-year-old female presented for complaint of vomiting, headache, body aches, sinus pressure/congestion, cough, fever/chills. Onset yesterday. Denies abdominal pain, hematochezia, melena, sob, wheezing. Took Mucinex yesterday. with similar symptoms for 3 days. MD elicited complaint: cough Related Data Home Medications ?Medication ?Instructions ?Recorded ?Confirmed ?Last Taken ?Type vit C 250 mg-vit E 90 mg-zinc 40 2 tablet PO DAILY 03/01/22 06/16/24 Unknown History mg-copper 1 wb-gifwvh-trbkys capsule (PreserVision AREDS-2) terbinafine HCl 250 mg tablet 250 mg PO DAILY 07/20/23 06/16/24 Unknown History metronidazole 0.75 % lotion 1 applic topical DIRECTED 01/01/24 06/16/24 Unknown History cholecalciferol (vitamin D3) 50 100 mcg PO DAILY 03/03/24 06/16/24 Unknown History mcg (2,000 unit) capsule Allergies Allergy/AdvReac Type Severity Reaction Status Date / Time doxycycline Allergy Mild Hives Verified 06/18/24 08:49 Review of Systems Review of Systems: Per HPI [facility] Past Medical History Medical History Rosacea History of macular degeneration Abnormality of left breast on screening mammogram Screening mammogram, encounter for Encounter for Papanicolaou smear for cervical cancer screening Hyperlipidemia Hypercalcemia Vitamin D deficiency Hypothyroidism Mumps Measles Osteopenia History of fracture Surgical History Surgical History History of knee surgery left History of tubal ligation Hx of cholecystectomy 1984 History of breast biopsy 01/05/02 cancer--no treatment needed History of appendectomy 01/02/04 Family History Family History Father Family history of coronary artery disease COPD (chronic obstructive pulmonary disease) Mother Cerebral hemorrhage Family history of osteoporosis Cerebrovascular accident Sibling Family history of osteoporosis sister brother Polialexx Social History Social History Social History: Caffeine-none Smoking status: Former smoker Second hand tobacco smoke exposure: Yes Smoking end date: 05/07/92 Alcohol intake: current Alcohol use details: rarely 1-2 a year Substance use: never Substance use type: does not use Current Housing: Decline to Answer Concerned About Future Housing: Decline to Answer Difficulty Paying Gas/Electric Bills: Decline to Answer Difficulty Paying for Meds: Decline to Answer Currently Unemployed: Decline to Answer Education: Decline to Answer Difficulty w/ Childcare or Family Care: Decline to Answer Living arrangements: with family Additional living arrangements comments: spouse Occupation/Education: retired 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 EYES: PERRLA, conjunctivae clear ENT: Mucous membranes moist. TM pearly garcia with dull light reflex bilaterally; no tragal tenderness. no drooling, no hoarseness, no trismus, uvula midline. No tripod positioning, muffled voice, soft palate or pharyngeal wall bulging NECK: Supple. No lymphadenopathy CHEST: Clear to auscultation, breath sounds equal. No wheezing, rhonchi, rales, or stridor. No respiratory distress, speaks in full sentences. HEART: Regular rate and rhythm. No murmur heard. ABD: soft, flat nontender, bowel sounds positive SKIN: Warm, dry, no rash. NEURO: Alert and oriented x3. PSYCH: Normal mood and affect Course Course Emergency Course: Patient is aware of diagnosis, understands and agrees to treatment plan. Anticipatory guidance given. Patient agrees to follow-up as directed and is aware of reasons to seek care at the emergency department. Portions of this record may have been created with voice recognition software Level of Care: Express Care Visit Vital Signs Vital signs: Vital Signs Temperature 101 F H 06/18/24 08:36 Pulse Rate 124 H 06/18/24 08:36 Respiratory Rate 16 06/18/24 08:36 Blood Pressure 134/66 06/18/24 08:36 Pulse Oximetry 100 06/18/24 08:36 Temperature 101 F H 02/12/25 08:36 Pulse Rate 124 H 06/18/24 08:36 Respiratory Rate 16 06/18/24 08:36 Blood Pressure 134/66 06/18/24 08:36 Pulse Oximetry 100 06/18/24 08:36 reviewed MDM - URI/Sore Throat MDM Narrative Medical decision making narrative: POS flu Discussed physical exam findings. Advised supportive measures and signs/symptoms to go to the ER. Pt is appropriate for outpt treatment and f/u. Differential Diagnosis Differential diagnosis: Likely upper respiratory infection, sinusitis and viral infection Lab Data Labs: Lab Results 06/18/24 Range/Units 08:52 POC Influenza A Ag Positive (Negative) POC Influenza B Ag Negative (Negative) POC SARS CoV-2 Ag Negative (Negative) Discharge Plan Discharge Clinical Impression: Influenza Patient Disposition: Home, Self-Care Condition: Stable Instructions: Influenza (ED) Additional Instructions: Influenza positive You should avoid crowds until you are fever free for 24 hours without the use of fever reducing medications, or the symptoms are improved Rest. Drink plenty of fluids. Tylenol 1000mg every 8 hours as needed for pain/fever Flonase spray and Zyrtec (or Claritin/Esther) for sinus pressure/congestion over the counter Cough syrup may cause drowsiness; avoid driving or take it at night time. Stay hydrated. Take small sips of fluid containing electrolytes frequently. Clear liquids (broth, jello, tea, sprite, pedialyte) [place] foods (bananas, rice, applesauce, toast, crackers) Avoid fatty, greasy, fried or spicy foods. Limit dairy until symptoms are improved. You should go to the hospital if you experience persistent nausea and vomiting that does not resolve and does not allow you to tolerate any food or fluids, fevers, increasing abdominal pain, persistent diarrhea, or for any other concerns. Follow up with primary care provider in 3 days. Patient Language: Dominican Prescriptions: New ondansetron 4 mg tablet,disintegrating 4 mg PO Q8H PRN (Reason: nausea and vomiting) Qty: 6 0RF No Action metronidazole 0.75 % lotion 1 applic TOPICAL DIRECTED PreserVision AREDS-2 250-90-40-1 mg capsule 2 tablet PO DAILY terbinafine HCl 250 mg tablet 250 mg PO DAILY cholecalciferol (vitamin D3) 50 mcg (2,000 unit) capsule 100 mcg PO DAILY levothyroxine 50 mcg tablet See Rx Instructions .ROUTE .COMPLEX Qty: 90 1RF Dose Instruction: TAKE 1 TABLET BY MOUTH EVERY DAY Rx Instructions: TAKE 1 TABLET BY MOUTH EVERY DAY alendronate [Fosamax] 70 mg tablet 70 mg PO WEEKLY Qty: 12 1RF Follow-up/Referrals: Tisha Grey [employer] SAL[employer] EXECUTIVE [Primary Care Provider] -
[2024-06-18 08:36] VITALS: BP 134/66; PULSE 124; RESP 16; TEMP 38.3; O2SAT 100
[2024-06-18 08:54] LABS: EDCOVIDSCREEN Negative (Negative); EDINFLUASCREEN Positive (Negative); EDINFLUBSCREEN Negative (Negative)
== END 2024-06-18 09:11 | disposition home or self-care (01) ==
PROVIDERS: Emergency Provider Nurse Practitioner Family; PCP Nurse Practitioner
DX: J10.1 Influenza due to other identified influenza virus with other respiratory manifestations (principal); Z20.822 Contact with and (suspected) exposure to COVID-19; E78.5 Hyperlipidemia, unspecified; E03.9 Hypothyroidism, unspecified; M85.80 Other specified disorders of bone density and structure, unspecified site; H35.30 Unspecified macular degeneration; E55.9 Vitamin D deficiency, unspecified; Z87.891 Personal history of nicotine dependence
CPT/HCPCS: 87426; 87804; 99213; G0463

== ENCOUNTER 2024-11-11 09:54 | Outpatient (CLI) | payer MEDICARE, SELFPAY ==
--- NOTE | ~2024-11-11 | DEXA_ITS ---
Bone Density Report Name: KYLAH GARCIA Age: 78 Sex: Female Ethnicity: White Date of : 1945 Indication: osteopenia; prior fracture; Referring Provider: Tisha Grey Study: Bone densitometry was performed. Exam Date: November 11, 2024 Accession number: [id number] Bone Density: Region BMD T-score Z-score Classification AP Spine(L1-L4) 0.858 -1.7 0.8 Osteopenia Femoral Neck (Left) 0.622 -2.0 0.1 Osteopenia Total Hip (Left) 0.706 -1.9 -0.1 Osteopenia Femoral Neck (Right) 0.571 -2.5 -0.3 Osteoporosis Total Hip (Right) 0.680 -2.1 -0.3 Osteopenia Total Hip Mean 0.693 -2.0 -0.2 Osteopenia World Health Organization criteria for BMD impression classify patients as: Normal (T-score at or above -1.0), Osteopenia (T-score between -1.0 and -2.5), or Osteoporosis (T-score at or below -2.5). 10-year Fracture Risk: FRAX not reported because: Some T-score for Spine Total or Hip Total or Femoral Neck at or below -2.5 Previous Exams: -- Region Exam Age BMD T-score BMD Change BMD Change Date g/cm2 vs Baseline vs Previous -- AP Spine (L1-L4) 11/11/2024 78 0.858 -1.7 11.9%* 1.2% 09/14/2022 76 0.848 -1.8 10.6%* 4.0%* 07/22/2021 75 0.815 -2.1 6.3%* 1.1% 05/09/2019 73 0.807 -2.2 5.2%* 0.9% 04/19/2017 71 0.799 -2.3 4.2%* -1.5% 04/09/2015 69 0.811 -2.1 5.8%* 2.4% 08/16/2013 67 0.792 -2.3 3.3%* -2.9%* 05/20/2011 65 0.815 -2.1 6.3%* 4.8%* 04/07/2009 63 0.778 -2.4 1.5% 1.5% 03/15/2007 61 0.767 -2.5 Total Hip(Left) 11/11/2024 78 0.706 -1.9 -6.0%* -2.5% 09/14/2022 76 0.724 -1.8 -3.6% 1.5% 07/22/2021 75 0.714 -1.9 -5.0%* -3.8%* 05/09/2019 73 0.741 -1.6 -1.3% -2.0% 04/19/2017 71 0.756 -1.5 0.6% 2.1% 04/09/2015 69 0.741 -1.7 -1.5% -1.2% 08/16/2013 67 0.749 -1.6 -0.3% 2.8% 05/20/2011 65 0.729 -1.7 -3.0% 1.8% 04/07/2009 63 0.716 -1.9 -4.7%* -4.7%* 03/15/2007 61 0.752 -1.6 Total Hip(Right) 11/11/2024 78 0.680 -2.1 -5.2%* -4.0%* 09/14/2022 76 0.708 -1.9 -1.3% 0.4% 07/22/2021 75 0.705 -1.9 -1.7% 1.8% 05/09/2019 73 0.693 -2.0 -3.4% -5.4%* 04/19/2017 71 0.732 -1.7 2.1% 1.9% 04/09/2015 69 0.719 -1.8 0.2% -3.1% 08/16/2013 67 0.742 -1.6 3.4% 1.5% 05/20/2011 65 0.731 -1.7 1.9% 2.0% 04/07/2009 63 0.716 -1.8 -0.1% -0.1% 03/15/2007 61 0.717 -1.8 -- *Denotes significance at 95% confidence level, LSC for AP Spine = 0.022 g/cm2, LSC for Total Hip = 0.027 g/cm2 Clinical Information Provided by Patient: Has had a low trauma fracture Has used the following medications: Fosamax (i.e. alendronate), Vitamin D, Calcium Patient maximum height was 63 Menopause Age: 52 Does not regularly consume dairy products Onset of menses at age 14 Number of children 1 Impression: The patient has established osteoporosis, based on the Right Femoral Neck T-score and the existence of a prior fracture. The patient has risk factors, including: previous fracture. The BMD for the Total Hip(Right) decreased, changing by -4.0% since the last DXA exam. Discussion: HIGH RISK OF FRACTURE. BONE DENSITY IS UNDESIRABLY LOW AT ONE OR MORE SKELETAL SITES, CONSISTENT WITH POSTMENOPAUSAL OSTEOPOROSIS. This patient's lowest T-score, in a patient who has previously fractured, meets the World Health Organization's (WHO) criteria for severe osteoporosis. In untreated patients, the risk of osteoporotic fracture increases approximately two-fold for each 1.0 SD decrease in T-score. Low bone density is not the only risk factor for fracture; also consider factors such as patient's age, frailty or poor health, risk of falling, risk of injury, previous osteoporotic fracture, family history of osteoporosis, cigarette smoking, low body weight, etc. Not everyone with low bone mineral density has osteoporosis; osteomalacia and other metabolic bone disorders should also be considered. Patients who have osteoporosis should be evaluated for specific diseases and conditions (secondary causes) that may cause or contribute to bone loss. The [place] Association of Clinical Endocrinologists (AACE) and National Osteoporosis Foundation (NOF) recommend pharmacologic intervention for all postmenopausal women whose T-score is in this range. The patient should follow a healthful lifestyle (good nutrition with adequate calcium and vitamin D, and appropriate weight-bearing exercise). Follow-Up: Consider a repeat BMD and Vertebral Fracture Assessment (VFA) exam in 2 years or sooner if medically necessary, to reassess this patient's status. Reported by: VIVI on 11/11/2024 10:17:00 AM. Reviewed, dictated and finalized at location A.
== END 2024-11-11 09:55 | disposition home or self-care (01) ==
LOC: MICIMG 09:55
PROVIDERS: PCP Nurse Practitioner; Visit Provider Nurse Practitioner
DX: M81.0 Age-related osteoporosis without current pathological fracture (principal); M85.89 Other specified disorders of bone density and structure, multiple sites; Z78.0 Asymptomatic menopausal state
CPT/HCPCS: 77080

== ENCOUNTER 2024-12-04 08:30 | Outpatient (CLI) | payer MEDICARE, SELFPAY ==
--- NOTE | ~2024-12-04 | XR_ITS ---
Right Hand Technique: PA, oblique, and lateral views were obtained. Clinical History: Pain Findings: No acute fracture or dislocation is seen. Osseous alignment is anatomic. Joint spaces are p reserved. Soft tissues are unremarkable. Impression: Unremarkable right hand. Reviewed, dictated and finalized at location M. Impression: Unremarkable right hand.
== END 2024-12-04 08:31 | disposition home or self-care (01) ==
LOC: GOSHIMG 08:30
PROVIDERS: PCP Internal Medicine; Visit Provider Clinical Nurse Specialist
DX: M25.541 Pain in joints of right hand (principal)
CPT/HCPCS: 73130

== ENCOUNTER 2025-01-02 12:43 | Outpatient (CLI) | payer MEDICARE, SELFPAY ==
--- NOTE | ~2025-01-02 | MM_ITS ---
EXAMINATION: MM screening haley BI w alice HISTORY: Screening TECHNIQUE: Craniocaudal and mediolateral oblique 3-D tomosynthesis images were obtained and synthetic 2-D images were generated. CAD analysis was submitted and interpreted. COMPARISON: Comparison to multiple prior studies sequentially, with oldest reviewed study dated , 06/28/2019 BREAST PARENCHYMAL COMPOSITION: There are scattered areas of fibroglandular density. FINDINGS: There is no evidence of suspicious mass, calcification, or architectural distortion to suggest malignancy in either breast. IMPRESSION: 1. No mammographic evidence of malignancy. 2. Recommend routine screening mammography in one year. BI-RADS Category 1: Negative Reviewed, dictated and finalized at location B.
== END 2025-01-02 12:44 | disposition home or self-care (01) ==
LOC: MICIMG 12:43
PROVIDERS: PCP Nurse Practitioner; Visit Provider Nurse Practitioner
DX: Z12.31 Encounter for screening mammogram for malignant neoplasm of breast (principal)
CPT/HCPCS: 77063; 77067

== ENCOUNTER 2025-03-02 08:26 | Outpatient (CLI) | payer MEDICARE, SELFPAY ==
--- OUTSIDE RECORDS SUMMARY | 2025-03-02 08:46 | XMS_ITS | Encounter Summary ---
Author Organization [facility] Health Address [address] [place] [address] Care Team Providers Care Floor Technician Name Role Phone Pedro Carvajal Primary Care Provider Unavailabl e Encounter Details Date Type Department Care Team (Late st Contact Info) Description 11/05/2018 Lab Requisition [facility] Care DermPath Lab [address] [place] [address] Kirk Bean MD [address] [place] [address] Social History Tobacco Use Types Packs/Day Years Used Date Smoking Tobacco: Former Cigarettes Q uit: 05/07/1992 Alcohol Use Standard Drinks/Week Comments No 0 (1 standard drink = 0.6 oz pur e alcohol) Comments No Sex and Gender Information Value Date Recorded Sex Assigned at Not on file 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 Gender Identity Not on file Sexual Orientation Not on file documented as of this encounter Plan of Treatment Not on file documented as of this encounter Procedures Procedure Name Priority Date/Time Associated Diagnosis Comments DERMATOPATHOLOGY Routine 11/04/2018 12:0 0 AM CDT documented in this encounter Results * DERMATOPATHOLOGY (11/04/2018 12:00 AM CDT) Case Report Dermatopathology Report Case: [id number] Authorizing Provider: Kirk Bean MD Collected: 11/04/2018 12:00 AM Pathologist: Deneen Krishna MD Received: 11/05/2018 12:08 PM Specimen: Skin, right cheek (next to mid ML fold) 1:06 PM CDT DERMATOPATHOLOGY LABORATORY Final Diagnosis Specimen A. 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 1:06 PM CDT DERMATOPATHOLOGY LABORATORY Gross Description Specimen A: Received is one formalin filled container labeled with the patient's name and designated right cheek (next to mid ML fold). The specimen consists of a shave biopsy measuring [id number]. Jar 0. 1:06 PM T DERMATOPATHOLOGY LABORATORY Microscopic Description Specimen A. 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 The aggregates are composed of squamoid cells showing variable glycogen vacuolation (pale-staining cytoplasm). Additional deeper sections were obtained and reviewed. 1:06 PM CDT DERMATOPATHOLOGY LABORATORY Disclaimer An external and internal positive and negative controls are appropriate for the histochemical, immunohistochemical and immunofluorescence stain(s) in this case (if any), except where stated explicitly. The performance characteristics of the stain(s) cited in this report were developed and its performance characteristic determined by the Dermatopathology Laboratory at [facility], directed by Dr. Tristen Pedro. These tests need not be, and therefore are not, approved by the [place] Food and Drug Administration. The tests are used for clinical purposes. Billing Codes Specimen Charges Stain Charges 61303 1 1:06 PM CDT DERMATOPATHOLOGY LABORATORY Embedded Images 1:06 PM CDT DERMATOPATHOLOGY LABORATORY Pathology/Cytolog y TISSUE SPECIMEN FROM SKIN / Unknown 11/04/2018 11/05/2018 12:08 PM CDT Kirk Bean MD LAB - PATHOLOGY/CYTOLOGY ORD ERABLES Final Result DERMATOPATHOLOGY LABORATORY [facility] - Department of Dermatology [address] [facility], [address]th Floor Lab [address] [phone] documented in this encounter Visit Diagnoses Not on filedocumented in this encounter Care Teams Floor Technician Relationship Specialty Start Date End Date Pedro Carvajal Update Information PCP - General 11/05/18 documented as of this encounter
--- OUTSIDE RECORDS SUMMARY | 2025-03-02 08:46 | XMS_ITS | Clinical Summary ---
Author Organization [facility] Address [address] [place] [address] Care Team Providers Care Drafter Marine Name Role Phone Pedro Carvajal Primary Care Provider Unavailabl e Source Comments [facility],non-owned Affiliates and Associated Physician Practices is amultiple site organization consisting of ambulatory clinics and hospital sitesin [place] and [place]. This disclosure is being madepursuant to the Care Everywhere program and may not contain all information available regarding this patient. Last updated 18.[facility] Allergies Active Allergy Reactions Criticality Noted Date Comments Codeine 11/17/2009 Penicillins 11/17/2009 Medications * Be aware that medications may not be up to date on this document. Alwaysverify current medications with the patient. diclofenac sodium (VOLTAREN) 50 MG tabletIndications:D egeneration of lumbar or lumbosacral intervertebral disc Take 1 Tab by mouth daily with food. 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 Gender Identity Not on file Sexual Orientation Not on file Last Filed Vital Signs Vital Sign Reading Time Taken Comments Blood Pressure - - Pulse - - Temperature - - Respiratory Rate - - Oxygen Saturation - - Inhaled Oxygen Concentration - - Weight 65.8 kg (145 lb) 11/24/2009 10:00 PM CDT Height 149.9 cm (4' 11) 11/24/2009 10:00 PM CDT Body Mass Index 29.29 11/24/2009 10:00 PM CDT Plan of Treatment Health Maintenance Due Date Last Done Comments BONE DENSITY TESTING 1945 HEPATITIS C SCREENING 12/22/1965 DTAP/TDAP/TD VACCINES (1 - Tdap) 12/26/1966 PNEUMOCOCCAL VACCINE 50+ (1 of 1 - PCV) 12/26/1997 ZOSTER VACCINE (1 of 2) 12/26/1997 Respiratory Syncytial Virus (RSV) Vaccine Pt: or over 60 yrs (1 - 1-dose 75+ series) 12/26/2022 DEPRESSION SCREENING 05/07/2024 COVID-19 VACCINE ( - 2023-2 5 season) 2025 INFLUENZA VACCINE (#1) 2025 HEPATITIS B VACCINE Aged Out No longe r eligible based on patient's age to complete this topic HIB VACCINE Aged Out No longer eligi ble based on patient's age to complete this topic HPV VACCINE Aged Out No longer eligi ble based on patient's age to complete this topic MENINGOCOCCAL (Group B) VACC INE SHARED DECISION-MAKING Aged Out No longer eligibl e based on patient's age to complete this topic MENINGOCOCCAL GROUPS A/C/Y/W VACCINE Aged Out No longer eligible b ased on patient's age to complete this topic Insurance MEDICARE AET[employer] Care Teams Drafter Marine Relationship Specialty Start Date End Date Pedro Carvajal Update Information PCP - General 11/05/18
[2025-03-02 13:15] LABS: Hematocrit 43.0 % (37.0-47.0); Hemoglobin 13.7 g/dL (12.0-15.0); Immature Granulocyte Percent A 0.3 % (0-0.5); Lymphocytes Absolute Auto 1.52 K/mm3 (0.9-3.2); Mean Corpuscular HGB Conc 31.9 g/dl (32-36); Mean Corpuscular Hemoglobin 30.9 pg (26-34); Mean Corpuscular Volume 96.8 fl (80-100); Nucleated Red Blood Cells Absolute Auto 0.000 K/mm3 (0.0-0.012); Nucleated Red Blood Cells Perc 0.0 % (0.0-0.2); Platelet Count Result 257 k/mm3 (150-375); Red Blood Count 4.44 M/mm3 (4.2-5.4); White Blood Count 7.3 K/mm3 (4.5-10.0)
[2025-03-02 13:23] LABS: Alanine Aminotransferase 16 U/L (6-35); Albumin Level 4.3 g/dL (3.5-5.1); Alkaline Phosphatase 84 U/L (38-126); Anion Gap 5 mmol/L (4-12); Aspartate Amino Transferase 47 U/L (14-36); Bilirubin,Total 0.8 mg/dL (0.2-1.3); Blood Urea Nitrogen 14 mg/dL (7-17); Calcium 9.3 mg/dL (8.4-10.2); Carbon Dioxide 31 mmol/L (22-30); Chloride 103 mmol/L (98-107); Estimated Glomerular Filt Rate > 60; Glucose 79 mg/dL (65-110); Potassium 4.5 mmol/L (3.4-5.0); Sodium 139 mmol/L (137-145); Total Protein 7.4 g/dL (6.3-8.2)
[2025-03-02 13:59] LABS: Thyroid Stimulating Hormone 2.660 uIU/mL (0.465-4.680)
== END 2025-03-02 08:27 | disposition home or self-care (01) ==
PROVIDERS: PCP Nurse Practitioner; Visit Provider Nurse Practitioner
DX: E78.5 Hyperlipidemia, unspecified (principal); E03.9 Hypothyroidism, unspecified; E55.9 Vitamin D deficiency, unspecified; Z13.29 Encounter for screening for other suspected endocrine disorder
CPT/HCPCS: 36415; 80053; 82306; 84443; 85025